=== PATIENT | female | born 1990 | race Caucasian/White ===

== ENCOUNTER 2016-04-05 21:02 | Emergency (ER) | payer OTHER ==
[~2016-04-05 21:02] MED LIST: /BUSP5TA OR; ACET50TA PO; BACT400T OR; BUSP10TA78 PO; CELE10TA OR; CELE20TA PO; DOCU10ELUD PO; IBUP600T26 PO; IBUP80TA PO; KEFL500C OR; PERC7.5T8 OR; PRENTAB74 PO; XANA0.5T PO; [UNRECOGNIZED DRUG - OTHER]; [UNRECOGNIZED DRUG - OTHER]
[2016-04-05] MEDS ORDERED: IBUPROFEN 600 MG TAB As Ordered ONE (22:28)
[2016-04-06] MEDS ORDERED: AMOXICILLIN 500 MG CAP As Ordered ONE (00:26)
--- NOTE | 2016-04-06 00:34 | EDDOCDS ---
Physician Documentation [facility] Name: Samia Hays Age: 25 yrs Sex: Female : 1990 Arrival Date: 04/05/2016 Time: 21:02 Bed PR Private MD: Petty Emmanuel Disposition: 04/06/16 00:12 Discharged to Home/Self Care. Impression: Streptococcal pharyngitis. - Condition is Stable. - Discharge Instructions: Salt Water Gargle, Strep Throat. - Prescriptions for Ibuprofen 600 mg Oral Tablet - take 1 tablet by ORAL route every 6 hours As needed take with food; 30 tablet. Amoxicillin 500 mg Oral Capsule - take 1 capsule by ORAL route every 8 hours for 10 days; 30 tablet. - Medication Reconciliation, Local Pharmacy Hours form. - Follow up: Petty Emmanuel; When: 1 - 2 days; Reason: Recheck today's complaints, Continuance of care. - Problem is new. - Symptoms have improved. - Notes: USE MEDICATIONS INSTRUCTED, FOLLOW UP WITH YOUR DOCTOR IN 2-3 DAYS, RETURN TO THE ER IF THE SYMPTOMS WORSEN OR BECOME CONCERNING Historical: - Allergies: no known allergies; - Home Meds: 1. Xanax 0.5 mg Oral tab PRN (Last dose: 03/28/2016) 2. hydrocodone-acetaminophen 5-325 mg Oral tab (Last dose: 04/04/2016 20:00) 3. cold medicine as needed (Last dose: 04/05/2016) 4. Theraflu Flu-Sore Throat oral Unknown oral as needed (Last dose: 04/05/2016 17:30) - PMHx: knee pain; Anxiety; - PSHx: Knee surgery- Left; - Social history: Smoking status: Patient uses tobacco products, current every day smoker. Patient uses alcohol but reports only rare drinking. Patient/guardian denies using street drugs, No barriers to communication noted, The patient speaks fluent Frisian, Speaks appropriately for age. - Family history: Not pertinent. - : The pt / caregiver states he / she is not on anticoagulants. Home medication list is obtained from the patient. - Exposure Risk Screening:: None identified. 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 1 in. (154.94 cm) (R); 04/06 00:31 BP 115 / 67; Pulse 95; Resp 18; Temp 97.8(O); Pulse Ox 97% on R/A; Pain 3/10; tm5 04/05 21:03 Body Mass Index 18.89 (45.36 kg, 154.94 cm) elp MDM: 04/05 22:27 Ibuprofen 600 mg PO once ordered. ck7 22:27 Obtain sample by nasopharyngeal swab ordered. ck7 22:27 Strep Screen, Nursing ordered. ck7 22:27 -Influenza A&B Rapid Antigen - Nose Ordered. EDMS 22:29 Chest, 2 View (pa\E\lat) Ordered. EDMS 23:49 Financial registration complete. hs2 23:58 -Influenza A&B Rapid Antigen - Nose Reviewed. ck7 04/06 00:11 Amoxicillin 500 mg PO once ordered. ck7 Administered Medications: 04/05 22:32 Drug: Ibuprofen 600 mg [ibuprofen 600 mg tablet (1 tabs)] Route: PO; rs3 04/06 00:30 Drug: Amoxicillin 500 mg [amoxicillin 500 mg capsule (1 caps)] Route: PO; tm5 00:30 Follow up: Response: Pt left department before re-evaluation is appropriate tm5 Signatures: Dispatcher [employer] EDMS Osvaldo Araya, RPA-C RPA-Cck7 Elinor Niño RN RN ttb Yoly Huizar, Joaquin Reg hs2 Sofia Mitchell RN RN tm5 Kyra Watson RN rs3 MTDD
--- NOTE | 2016-04-06 00:34 | EDDOCDS ---
Nurse's Notes [facility] Name: Samia Hays Age: 25 yrs Sex: Female : 1990 Arrival Date: 04/05/2016 Time: 21:02 Bed PR Private MD: Petty Emmanuel Diagnosis: Streptococcal pharyngitis Presentation: 04/05 21:08 Presenting complaint: Patient states: ear pain, throat pain, headache since this ttb morning. Adult Sepsis Screening: The patient does not have new or worsening altered mentation. Patient's respiratory rate is less than 22. Systolic blood pressure is greater than 100. Patient has a qSOFA score of 0- Negative Sepsis Screen. Suicide/Homicide risk assessment- the patient denies having any suicidal and/or homicidal ideations and does not present with any other emotional, behavioral or mental health complaints. Status: Patient is not a automotive service consultant or dependent. Transition of care: patient was not received from another setting of care. 21:08 Acuity: RICCO Level 4 ttb 21:08 Method Of Arrival: Walkin/Carried/Asstd ttb Triage Assessment: 21:11 General: Appears in no apparent distress, well nourished, well groomed, Behavior is ttb appropriate for age, cooperative, pleasant. Pain: Location: ears, body aches. HIV screening NA for this visit Offered previously. Neurological: Level of Consciousness is awake, alert. Cardiovascular: Chest pain is denied. Respiratory: Reports cough that is. Derm: Skin is normal. 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 Xanax 0.5 mg Oral tab PRN (Last dose: 03/28/2016) 2. hydrocodone-acetaminophen 5-325 mg Oral tab (Last dose: 04/04/2016 20:00) 3. cold medicine as needed (Last dose: 04/05/2016) 4. Theraflu Flu-Sore Throat oral Unknown oral as needed (Last dose: 04/05/2016 17:30) - PMHx: knee pain; Anxiety; - PSHx: Knee surgery- Left; - Social history: Smoking status: Patient uses tobacco products, current every day smoker. Patient uses alcohol but reports only rare drinking. Patient/guardian denies using street drugs, No barriers to communication noted, The patient speaks fluent Persian, Speaks appropriately for age. - Family history: Not pertinent. - : The pt / caregiver states he / she is not on anticoagulants. Home medication list is obtained from the patient. - Exposure Risk Screening:: None identified. Screenin/12 00:31 Screening information is obtained from the patient. Fall risk: No risks identified. tm5 Assistance ADL's: requires no assistance with activities of daily living. Abuse/DV Screen: The patient / caregiver reports he/she is: not in a situation that causes fear, pain or injury. Nutritional screening: No deficits noted. Advance Directives: There is no active DNR order. home support is adequate. Assessment: 04/05 22:33 General: Appears in no apparent distress, Behavior is appropriate for age, cooperative. rs3 Pain: Location: sore throat. EENT: Throat is reddened. Respiratory: Airway is patent Respiratory effort is even, unlabored, Respiratory pattern is regular, symmetrical. Derm: Skin is pink, warm & dry. Vital Signs: 21:03 BP 122 / 67; Pulse 89; Resp 20; Temp 100.4(O); Pulse Ox 100% on R/A; Weight 45.36 kg elp (R); Height 5 ft. 1 in. (154.94 cm) (R); 02 00:31 BP 115 / 67; Pulse 95; Resp 18; Temp 97.8(O); Pulse Ox 97% on R/A; Pain 3/10; tm5 04/05 21:03 Body Mass Index 18.89 (45.36 kg, 154.94 cm) elp Vitals: 04/05 21:03 Log In Time: April 05, 2016 at 21:02. elp 22:38 Strep Screen is obtained and tested: Positive. rs3 ED Course: 21:03 Patient visited by Varsha Turner PCA. elp 21:03 Petty Emmanuel is Private Physician. elp 21:03 Patient moved to Waiting elp 21:06 Patient visited by Varsha Turner PCA. elp 21:06 Patient moved to Pre RCE elp 21:09 Triage Initiated ttb 21:51 Patient moved to Triage 1 rs3 22:01 [facility]val[facility] ck7 22:01 Angelo Mancia DO is Attending Physician. ck7 22:01 Patient visited by Osvaldo Araya RPA-C. ck7 22:32 Patient moved to TR5 rs3 22:32 -Influenza A&B Rapid Antigen - Nose Sent. rs3 22:33 Patient visited by Kyra Watson RN. rs3 23:33 Patient visited by Osvaldo Araya RPA-C. ck7 04/06 00:04 Patient visited by Osvaldo Araya RPA-C. ck7 00:11 Petty Emmanuel is Referral Physician. ck7 00:23 Patient moved to PR1 / [facility] [place] 00:32 The patient / caregiver is instructed regarding the plan of care and ED course. tm5 00:32 No IV's were initiated during this patient's visit. No procedures done that require tm5 assistance. Administered Medications: 04/05 22:32 Drug: Ibuprofen 600 mg [ibuprofen 600 mg tablet (1 tabs)] Route: PO; rs3 02 00:30 Drug: Amoxicillin 500 mg [amoxicillin 500 mg capsule (1 caps)] Route: PO; tm5 00:30 Follow up: Response: Pt left department before re-evaluation is appropriate tm5 Order Results: Lab Order: -Influenza A&B Rapid Antigen - Nose; SPEC'M 04/05/16 22:29 Test: INFLUENZA A RAPID SCR by ICA; Value: INFLUENZA A RESULTS NEGATIVE; Status: F Test: INFLUENZA A RAPID SCR by ICA; Value: Comments:; Status: F Test: INFLUENZA B RAPID SCR by ICA; Value: INFLUENZA B RESULTS NEGATIVE; Status: F Test Note: ; The Influenza test is a direct rapid immunoassay for the qualitative detection of Influenza viral antigen. Cell culture (Viral Culture) testing should be considered to confirm NEGATIVE results and to assist in detecting other viruses that can provide similar clinical symptoms. Please contact the lab within 24 hours ([phone]) if confirmatory testing is desired. Outcome: 00:12 Discharge ordered by Provider. ck7 00:31 Discharge Assessment: Patient awake, alert and oriented x 3. No cognitive and/or tm5 functional deficits noted. Patient verbalized understanding of disposition instructions. patient administered narcotics - no. The following High Risk Discharge criteria are identified: None. Discharged to home ambulatory. Condition: good Condition: stable. Discharge instructions given to patient, Instructed on discharge instructions, follow up and referral plans. medication usage, Demonstrated understanding of instructions, medications, Pt was receptive of discharge instructions/ teaching. Prescriptions given X 2. No special radiology studies were completed. Property :Personal belongings accompany Pt. 00:32 Patient left the ED. tm5 Signatures: Kristal Borges, RN RN kmg1 Kyra WatsonRN RN rs3 Osvaldo Araya, RPA-C RPA-Cck7 Elinor Niño, RN RN Varsha Mack, SOLAR SITE ASSESSMENT SPECIALIST SOLAR SITE ASSESSMENT SPECIALIST Sofia Singh,RN RN tm5 MTDD
--- NOTE | 2016-04-06 13:57 | REP ---
CHEST X-RAY PA AND LATERAL: 04/05/2016. Comparison: 12/02/2008, 04/06/2007. Clinical history: Cough. Findings: Two view show the lungs well inflated and without infiltrate, effusion, atelectasis or mass. The heart, mediastinal and hilar contours are normal. Bony thorax unremarkable. Airway was intact and the aorta normal. There is no free air under the diaphragm. Impression: 1. No acute cardiopulmonary change. Signed by Nirav Cooper MD 04/06/2016 07:24 P
--- NOTE | 2016-04-08 01:34 | EDDOCDS ---
Nurse's Notes [facility] Name: Samia Hays Age: 25 yrs Sex: Female : 1990 Arrival Date: 04/05/2016 Time: 21:02 Bed PR Private MD: Petty Emmanuel Diagnosis: Streptococcal pharyngitis Presentation: 04/05 21:08 Presenting complaint: Patient states: ear pain, throat pain, headache since this ttb morning. Adult Sepsis Screening: The patient does not have new or worsening altered mentation. Patient's respiratory rate is less than 22. Systolic blood pressure is greater than 100. Patient has a qSOFA score of 0- Negative Sepsis Screen. Suicide/Homicide risk assessment- the patient denies having any suicidal and/or homicidal ideations and does not present with any other emotional, behavioral or mental health complaints. Status: Patient is not a food service substitute or dependent. Transition of care: patient was not received from another setting of care. 21:08 Acuity: RICCO Level 4 ttb 21:08 Method Of Arrival: Walkin/Carried/Asstd ttb Triage Assessment: 21:11 General: Appears in no apparent distress, well nourished, well groomed, Behavior is ttb appropriate for age, cooperative, pleasant. Pain: Location: ears, body aches. HIV screening NA for this visit Offered previously. Neurological: Level of Consciousness is awake, alert. Cardiovascular: Chest pain is denied. Respiratory: Reports cough that is. Derm: Skin is normal. 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 Xanax 0.5 mg Oral tab PRN (Last dose: 03/28/2016) 2. hydrocodone-acetaminophen 5-325 mg Oral tab (Last dose: 04/04/2016 20:00) 3. cold medicine as needed (Last dose: 04/05/2016) 4. Theraflu Flu-Sore Throat oral Unknown oral as needed (Last dose: 04/05/2016 17:30) - PMHx: knee pain; Anxiety; - PSHx: Knee surgery- Left; - Social history: Smoking status: Patient uses tobacco products, current every day smoker. Patient uses alcohol but reports only rare drinking. Patient/guardian denies using street drugs, No barriers to communication noted, The patient speaks fluent Kinyarwanda, Speaks appropriately for age. - Family history: Not pertinent. - : The pt / caregiver states he / she is not on anticoagulants. Home medication list is obtained from the patient. - Exposure Risk Screening:: None identified. Screenin/12 00:31 Screening information is obtained from the patient. Fall risk: No risks identified. tm5 Assistance ADL's: requires no assistance with activities of daily living. Abuse/DV Screen: The patient / caregiver reports he/she is: not in a situation that causes fear, pain or injury. Nutritional screening: No deficits noted. Advance Directives: There is no active DNR order. home support is adequate. Assessment: 04/05 22:33 General: Appears in no apparent distress, Behavior is appropriate for age, cooperative. rs3 Pain: Location: sore throat. EENT: Throat is reddened. Respiratory: Airway is patent Respiratory effort is even, unlabored, Respiratory pattern is regular, symmetrical. Derm: Skin is pink, warm & dry. Vital Signs: 21:03 BP 122 / 67; Pulse 89; Resp 20; Temp 100.4(O); Pulse Ox 100% on R/A; Weight 45.36 kg elp (R); Height 5 ft. 1 in. (154.94 cm) (R); 02 00:31 BP 115 / 67; Pulse 95; Resp 18; Temp 97.8(O); Pulse Ox 97% on R/A; Pain 3/10; tm5 04/05 21:03 Body Mass Index 18.89 (45.36 kg, 154.94 cm) elp Vitals: 04/05 21:03 Log In Time: April 05, 2016 at 21:02. elp 22:38 Strep Screen is obtained and tested: Positive. rs3 ED Course: 21:03 Patient visited by Varsha Turner PCA. elp 21:03 Petty Emmanuel is Private Physician. elp 21:03 Patient moved to Waiting elp 21:06 Patient visited by Varsha Turner PCA. elp 21:06 Patient moved to Pre RCE elp 21:09 Triage Initiated ttb 21:51 Patient moved to Triage 1 rs3 22:01 [facility] ck7 22:01 Angelo Mancia DO is Attending Physician. ck7 22:01 Patient visited by Osvaldo Araya RPA-C. ck7 22:32 Patient moved to TR5 rs3 22:32 -Influenza A&B Rapid Antigen - Nose Sent. rs3 22:33 Patient visited by Kyra Watson RN. rs3 23:33 Patient visited by Osvaldo Araya RPA-C. ck7 02 00:04 Patient visited by Osvaldo Araya RPA-C. ck7 00:11 Petty Emmanuel is Referral Physician. ck7 00:23 Patient moved to PR1 / 25 km 00:32 The patient / caregiver is instructed regarding the plan of care and ED course. tm5 00:32 No IV's were initiated during this patient's visit. No procedures done that require tm5 assistance. 01:31 [facility] Payment Agreement was scanned into [employer] and attached to record. hs2 14:31 Chest, 2 View (pa\E\lat) Returned. EDMS 22:48 T-Sheet-- Draft Copy was scanned into [employer] and attached to record. klr Administered Medications: 04/05 22:32 Drug: Ibuprofen 600 mg [ibuprofen 600 mg tablet (1 tabs)] Route: PO; rs3 02 00:30 Drug: Amoxicillin 500 mg [amoxicillin 500 mg capsule (1 caps)] Route: PO; tm5 00:30 Follow up: Response: Pt left department before re-evaluation is appropriate tm5 Order Results: Lab Order: -Influenza A&B Rapid Antigen - Nose; SPEC'M 04/05/16 22:29 Test: INFLUENZA A RAPID SCR by ICA; Value: INFLUENZA A RESULTS NEGATIVE; Status: F Test: INFLUENZA A RAPID SCR by ICA; Value: Comments:; Status: F Test: INFLUENZA B RAPID SCR by ICA; Value: INFLUENZA B RESULTS NEGATIVE; Status: F Test Note: ; The Influenza test is a direct rapid immunoassay for the qualitative detection of Influenza viral antigen. Cell culture (Viral Culture) testing should be considered to confirm NEGATIVE results and to assist in detecting other viruses that can provide similar clinical symptoms. Please contact the lab within 24 hours ([phone]) if confirmatory testing is desired. Radiology Order: Chest, 2 View (pa\E\lat) Test: Chest, 2 View (pa\E\lat) REASON FOR EXAMINATION: Cough; CHEST X-RAY PA AND LATERAL: 04/05/2016.; ; Comparison: 12/02/2008, 04/06/2007.; ; Clinical history: Cough.; ; Findings: Two view show the lungs well inflated and without infiltrate,; effusion, atelectasis or mass. The heart, mediastinal and hilar contours are; normal. Bony thorax unremarkable. Airway was intact and the aorta normal.; There is no free air under the diaphragm.; ; Impression:; ; 1. No acute cardiopulmonary change.; ; ; Signed by; Nirav Cooper MD 04/06/2016 07:24 P; Outcome: 00:12 Discharge ordered by Provider. ck7 00:31 Discharge Assessment: Patient awake, alert and oriented x 3. No cognitive and/or tm5 functional deficits noted. Patient verbalized understanding of disposition instructions. patient administered narcotics - no. The following High Risk Discharge criteria are identified: None. Discharged to home ambulatory. Condition: good Condition: stable. Discharge instructions given to patient, Instructed on discharge instructions, follow up and referral plans. medication usage, Demonstrated understanding of instructions, medications, Pt was receptive of discharge instructions/ teaching. Prescriptions given X 2. No special radiology studies were completed. Property :Personal belongings accompany Pt. 00:32 Patient left the ED. tm5 Signatures: Dispatcher [employer] EDMS Kristal Borges, RN RN kmg1 Kyra Watson RN RN rs3 Osvaldo Araya, RPA-C RPA-Cck7 Elinor Niño RN RN Varsha Mack, LUCILLE ENGINEERING VICE PRESIDENT elp Yoly Huizar, Reg Reg hs2 Susan Delgado Tonya,RN RN tm5 Chart Complete MTDD
--- NOTE | 2016-04-08 01:34 | EDDOCDS ---
Physician Documentation [facility] Name: Samia Hays Age: 25 yrs Sex: Female : 1990 Arrival Date: 04/05/2016 Time: 21:02 Bed PR Private MD: Petty Emmanuel Disposition: 04/06/16 00:12 Discharged to Home/Self Care. Impression: Streptococcal pharyngitis. - Condition is Stable. - Discharge Instructions: Salt Water Gargle, Strep Throat. - Prescriptions for Ibuprofen 600 mg Oral Tablet - take 1 tablet by ORAL route every 6 hours As needed take with food; 30 tablet. Amoxicillin 500 mg Oral Capsule - take 1 capsule by ORAL route every 8 hours for 10 days; 30 tablet. - Medication Reconciliation, Local Pharmacy Hours form. - Follow up: Petty Emmanuel; When: 1 - 2 days; Reason: Recheck today's complaints, Continuance of care. - Problem is new. - Symptoms have improved. - Notes: USE MEDICATIONS INSTRUCTED, FOLLOW UP WITH YOUR DOCTOR IN 2-3 DAYS, RETURN TO THE ER IF THE SYMPTOMS WORSEN OR BECOME CONCERNING Historical: - Allergies: no known allergies; - Home Meds: 1. Xanax 0.5 mg Oral tab PRN (Last dose: 03/28/2016) 2. hydrocodone-acetaminophen 5-325 mg Oral tab (Last dose: 04/04/2016 20:00) 3. cold medicine as needed (Last dose: 04/05/2016) 4. Theraflu Flu-Sore Throat oral Unknown oral as needed (Last dose: 04/05/2016 17:30) - PMHx: knee pain; Anxiety; - PSHx: Knee surgery- Left; - Social history: Smoking status: Patient uses tobacco products, current every day smoker. Patient uses alcohol but reports only rare drinking. Patient/guardian denies using street drugs, No barriers to communication noted, The patient speaks fluent Indonesian, Speaks appropriately for age. - Family history: Not pertinent. - : The pt / caregiver states he / she is not on anticoagulants. Home medication list is obtained from the patient. - Exposure Risk Screening:: None identified. 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 1 in. (154.94 cm) (R); 04/06 00:31 BP 115 / 67; Pulse 95; Resp 18; Temp 97.8(O); Pulse Ox 97% on R/A; Pain 3/10; tm5 04/05 21:03 Body Mass Index 18.89 (45.36 kg, 154.94 cm) elp MDM: 04/05 22:27 Ibuprofen 600 mg PO once ordered. ck7 22:27 Obtain sample by nasopharyngeal swab ordered. ck7 22:27 Strep Screen, Nursing ordered. ck7 22:27 -Influenza A&B Rapid Antigen - Nose Ordered. EDMS 22:29 Chest, 2 View (pa\E\lat) Ordered. EDMS 23:49 Financial registration complete. hs2 23:58 -Influenza A&B Rapid Antigen - Nose Reviewed. ck7 04/06 00:11 Amoxicillin 500 mg PO once ordered. ck7 01:31 [facility] Payment Agreement was scanned into [employer] and attached to record. hs2 22:48 T-Sheet-- Draft Copy was scanned into [employer] and attached to record. klr Administered Medications: 04/05 22:32 Drug: Ibuprofen 600 mg [ibuprofen 600 mg tablet (1 tabs)] Route: PO; rs3 02 00:30 Drug: Amoxicillin 500 mg [amoxicillin 500 mg capsule (1 caps)] Route: PO; tm5 00:30 Follow up: Response: Pt left department before re-evaluation is appropriate tm5 Signatures: Dispatcher [employer] EDMS Osvaldo Araya, RPA-C RPA-Cck7 Elinor Niño RN RN ttb Yoly Huizar, Reg Reg hs2 Susan Delgado Tonya, RN RN tm5 Kyra Watson RN rs3 The chart was reviewed and I authenticate all verbal orders and agree with the evaluation and treatment provided.Attachments: 01:31 [facility] Payment Agreement hs2 22:48 T-Sheet-- Draft Copy klr Chart Complete MTDD
--- NOTE | 2016-04-08 01:34 | EDDOCDS ---
Physician Documentation [facility] Name: Samia Hays Age: 25 yrs Sex: Female : 1990 Arrival Date: 04/05/2016 Time: 21:02 Bed PR Private MD: Petty Emmanuel Disposition: 04/06/16 00:12 Discharged to Home/Self Care. Impression: Streptococcal pharyngitis. - Condition is Stable. - Discharge Instructions: Salt Water Gargle, Strep Throat. - Prescriptions for Ibuprofen 600 mg Oral Tablet - take 1 tablet by ORAL route every 6 hours As needed take with food; 30 tablet. Amoxicillin 500 mg Oral Capsule - take 1 capsule by ORAL route every 8 hours for 10 days; 30 tablet. - Medication Reconciliation, Local Pharmacy Hours form. - Follow up: Petty Emmanuel; When: 1 - 2 days; Reason: Recheck today's complaints, Continuance of care. - Problem is new. - Symptoms have improved. - Notes: USE MEDICATIONS INSTRUCTED, FOLLOW UP WITH YOUR DOCTOR IN 2-3 DAYS, RETURN TO THE ER IF THE SYMPTOMS WORSEN OR BECOME CONCERNING Historical: - Allergies: no known allergies; - Home Meds: 1. Xanax 0.5 mg Oral tab PRN (Last dose: 03/28/2016) 2. hydrocodone-acetaminophen 5-325 mg Oral tab (Last dose: 04/04/2016 20:00) 3. cold medicine as needed (Last dose: 04/05/2016) 4. Theraflu Flu-Sore Throat oral Unknown oral as needed (Last dose: 04/05/2016 17:30) - PMHx: knee pain; Anxiety; - PSHx: Knee surgery- Left; - Social history: Smoking status: Patient uses tobacco products, current every day smoker. Patient uses alcohol but reports only rare drinking. Patient/guardian denies using street drugs, No barriers to communication noted, The patient speaks fluent Amharic, Speaks appropriately for age. - Family history: Not pertinent. - : The pt / caregiver states he / she is not on anticoagulants. Home medication list is obtained from the patient. - Exposure Risk Screening:: None identified. [employer]: 04/05 21:11 LMP 03/30/2016 ttb Vital Signs: 21:03 BP 122 / 67; Pulse 89; Resp 20; Temp 100.4(O); Pulse Ox 100% on R/A; Weight 45.36 kg / elp 100 lbs (R); Height 5 ft. 1 in. (154.94 cm) (R); 04/06 00:31 BP 115 / 67; Pulse 95; Resp 18; Temp 97.8(O); Pulse Ox 97% on R/A; Pain 3/10; tm5 04/05 21:03 Body Mass Index 18.89 (45.36 kg, 154.94 cm) elp MDM: 04/05 22:27 Ibuprofen 600 mg PO once ordered. ck7 22:27 Obtain sample by nasopharyngeal swab ordered. ck7 22:27 Strep Screen, Nursing ordered. ck7 22:27 -Influenza A&B Rapid Antigen - Nose Ordered. EDMS 22:29 Chest, 2 View (pa\E\lat) Ordered. EDMS 23:49 Financial registration complete. hs2 23:58 -Influenza A&B Rapid Antigen - Nose Reviewed. ck7 04/06 00:11 Amoxicillin 500 mg PO once ordered. ck7 01:31 [facility] Payment Agreement was scanned into [employer] and attached to record. hs2 22:48 T-Sheet-- Draft Copy was scanned into [employer] and attached to record. klr Administered Medications: 04/05 22:32 Drug: Ibuprofen 600 mg [ibuprofen 600 mg tablet (1 tabs)] Route: PO; rs3 02 00:30 Drug: Amoxicillin 500 mg [amoxicillin 500 mg capsule (1 caps)] Route: PO; tm5 00:30 Follow up: Response: Pt left department before re-evaluation is appropriate tm5 Signatures: Dispatcher [employer] EDMS Osvaldo Araya, RPA-C [id number] Elinor Niño RN RN ttb oYly Huizar, Reg Reg hs2 Susan Delgado Tonya, RN RN tm5 Kyra Watson RN rs3 The chart was reviewed and I authenticate all verbal orders and agree with the evaluation and treatment provided.Attachments: 01:31 [facility] Payment Agreement hs2 22:48 T-Sheet-- Draft Copy klr Chart Complete MTDD
== END 2016-04-06 00:32 | disposition home or self-care (01) ==
LOC: M ED 21:02
DX: J02.0 Streptococcal pharyngitis (principal); F41.9 Anxiety disorder, unspecified; M25.562 Pain in left knee; Z79.899 Other long term (current) drug therapy; Z79.891 Long term (current) use of opiate analgesic; F17.200 Nicotine dependence, unspecified, uncomplicated

== ENCOUNTER → 2016-05-02 | Outpatient (REF) | payer OTHER | LOC: M LAB REF 11:50 | PROVIDERS: ATTEND Physician Assistant Medical | DX: J11.1 Influenza due to unidentified influenza virus with other respiratory manifestations (principal) ==

== ENCOUNTER 2016-05-21 13:00 | Outpatient (RCR) | payer OTHER | END 2016-05-23 | LOC: M PT 13:00 | PROVIDERS: ATTEND Physician Assistant Surgical | DX: Z51.89 Encounter for other specified aftercare (principal); M25.562 Pain in left knee; G89.29 Other chronic pain; M22.42 Chondromalacia patellae, left knee; Z98.890 Other specified postprocedural states ==

== ENCOUNTER 2016-06-18 13:43 | Outpatient (RCR) | payer OTHER | END 2016-06-22 | disposition home or self-care (01) | LOC: M PT 13:43 | PROVIDERS: ATTEND Physician Assistant Surgical | DX: Z51.89 Encounter for other specified aftercare (principal); M22.42 Chondromalacia patellae, left knee; Z98.890 Other specified postprocedural states ==

== ENCOUNTER 2016-07-16 13:36 | Outpatient (RCR) | payer MEDICAID, OTHER, SELFPAY | END 2016-07-23 | LOC: M PT 13:36 | PROVIDERS: ATTEND Physician Assistant Surgical | DX: Z51.89 Encounter for other specified aftercare (principal); M22.42 Chondromalacia patellae, left knee; M25.562 Pain in left knee; Z98.890 Other specified postprocedural states ==

== ENCOUNTER 2017-01-30 11:21 | Emergency (ER) | payer MEDICAID, OTHER ==
[~2017-01-30] VITALS: Ht 154.9 cm; Wt 44.5 kg
[2017-01-30] MEDS ORDERED: PERCOCET (11:30)
[2017-01-30] MEDS ORDERED: MIDO1TAB5 PO (11:30)
[2017-01-30] MEDS ORDERED: ZOLP5TAB (11:30)
[2017-01-30] MEDS ORDERED: KETOROLAC 60 MG/2 ML VIAL (J1885) IM ONE (12:15)
--- NOTE | 2017-01-30 13:51 | REP ---
PELVIC ULTRASOUND: 01/30/2017 CLINICAL HISTORY: Cramping, pain, pelvic pain. Symptoms worse than normal. FINDINGS: Transabdominal images were obtained. The uterus anteverted and measures 7.5 x 3.8 x 4.1 cm. It is well seen although the bladder is nearly empty. The endometrial stripe is centrally located and has a thickness of 10.2 mm. No fluid in endometrial cavity or endocervical canal. No discrete uterine mass. No fluid in the cul-de-sac. The right ovary is 3.5 x 3.4 x 1.9 cm with Doppler tracing showing resistive index of 0.52. No mass or cyst. There is trace fluid adjacent to the right ovary. The left ovary is 2.4 x 2.3 x 1.5 cm. It also shows a Doppler tracing with resistive index of 0.59. IMPRESSION: 1. Anteverted uterus with no uterine mass, contour abnormality or enlargement. Endometrial stripe 10 mm and normal echogenicity without fluid within. 2. Both ovaries without mass or definite cyst. Small amount of free fluid adjacent the right ovary. No torsion of either side. Signed by Nirav Cooper MD 01/30/2017 06:55 P
[2017-01-30 13:54] VITALS: BP 105/61
== END 2017-01-30 13:55 | disposition home or self-care (01) ==
LOC: M ED 11:21
DX: N94.6 Dysmenorrhea, unspecified (principal); F41.9 Anxiety disorder, unspecified; F32.9 Major depressive disorder, single episode, unspecified; F17.200 Nicotine dependence, unspecified, uncomplicated; Z79.899 Other long term (current) drug therapy
CPT/HCPCS: 76856; 81001; 81025; 93976; 96372; 99284; J1885

== ENCOUNTER → 2017-03-24 | Outpatient (REF) | payer OTHER ==
[2017-03-27 14:13] LABS: HPV HYBRID CAPTURE II Positive (Negative)
== END ==
LOC: M SFHCWAGY 14:57
DX: Z12.4 Encounter for screening for malignant neoplasm of cervix (principal)

== ENCOUNTER → 2017-12-21 | Outpatient (REF) | payer OTHER, MEDICAID ==
[2017-12-21 17:06] LABS: HEMOGLOBIN 12.3 g/dl (12.0-15.5); MEAN CORPUSCULAR HEMOGLOBIN 33.3 pg (27.0-33.0); MEAN CORPUSCULAR HGB CONC 33.2 g/dl (32.0-36.5); MEAN CORPUSCULAR VOLUME 100.3 fl (80.0-96.0); PLATELET COUNT, AUTOMATED 255 10^3/uL (150-450); RED BLOOD COUNT 3.69 10^6/uL (4.00-5.40); RED CELL DISTRIBUTION WIDTH 11.8 % (11.5-14.5); WHITE BLOOD COUNT 10.4 10^3/uL (4.0-10.0)
[2017-12-21 17:32] LABS: HCG, SERUM QUANTITATIVE 100858 MIU/ML
[2017-12-21 17:37] LABS: RUBELLA IgG QUALITATIVE IMMUNE (IMMUNE)
[2017-12-21 18:06] LABS: HIV 1&2 SCREEN CENTAUR NEGATIVE (NEGATIVE)
[2017-12-23 11:06] LABS: HBsAg Prenatal NEGATIVE (NEGATIVE)
[2017-12-23 11:35] LABS: HEPATITIS C VIRUS ABY INDEX < 0.0 INDEX (<0.8)
== END ==
LOC: M LAB REF 16:32
DX: O36.80X0 Pregnancy with inconclusive fetal viability, not applicable or unspecified (principal)

== ENCOUNTER 2018-03-26 13:58 | Emergency (ER) | payer MEDICAID, OTHER ==
[~2018-03-26] VITALS: Ht 154.9 cm; Wt 54.1 kg
[~2018-03-26 13:58] MED LIST changes: +MAPA500T2 PO; +MIDO1TAB5 PO; +PERCOCET; +ZOLP5TAB
[2018-03-26] MEDS ORDERED: TRIA1CR80 TOP (15:49)
[2018-03-26 15:59] VITALS: BP 99/56
== END 2018-03-26 16:00 | disposition home or self-care (01) ==
LOC: M ED 13:58
DX: O99.712 Diseases of the skin and subcutaneous tissue complicating pregnancy, second trimester (principal); L42 Pityriasis rosea; Z3A.22 22 weeks gestation of pregnancy

== ENCOUNTER → 2018-05-12 | Outpatient (CLI) | payer OTHER ==
[~2018-05-12] MED LIST changes: +TRIA1CR80 TOP
[2018-05-12 13:27] LABS: HEMATOCRIT 29.7 % (36.0-47.0); HEMOGLOBIN 9.7 g/dl (12.0-15.5); MEAN CORPUSCULAR HEMOGLOBIN 33.3 pg (27.0-33.0); MEAN CORPUSCULAR HGB CONC 32.7 g/dl (32.0-36.5); MEAN CORPUSCULAR VOLUME 102.1 fl (80.0-96.0); PLATELET COUNT, AUTOMATED 236 10^3/uL (150-450); RED BLOOD COUNT 2.91 10^6/uL (4.00-5.40); WHITE BLOOD COUNT 9.7 10^3/uL (4.0-10.0)
== END ==
LOC: M WUC 09:26
PROVIDERS: ATTEND Obstetrics & Gynecology
DX: Z36.89 Encounter for other specified antenatal screening (principal)

== ENCOUNTER → 2018-07-08 | Outpatient (REF) | payer OTHER ==
[~2018-07-08] MED LIST changes: -ACET50TA PO; -DOCU10ELUD PO; +DOCU5LIQ PO; +MAPA500T17 PO
== END ==
LOC: M LAB REF 12:30
PROVIDERS: ATTEND Obstetrics & Gynecology
DX: Z34.83 Encounter for supervision of other normal pregnancy, third trimester (principal); Z3A.00 Weeks of gestation of pregnancy not specified

== ENCOUNTER 2019-01-27 08:58 | Emergency (ER) | payer OTHER ==
[~2019-01-27] VITALS: Ht 162.6 cm; Wt 51.2 kg
[~2019-01-27 08:58] MED LIST changes: +IBUP-1114 PO; +PRENTAB9 PO
[2019-01-27] MEDS ORDERED: IBUPROFEN 600 MG TAB PO ONE (10:00)
[2019-01-27 10:50] VITALS: BP 103/82
[2019-01-27 11:09] LABS: INFLUENZA A AMPLIFICATION NEGATIVE (NEGATIVE); INFLUENZA B AMPLIFICATION POSITIVE (NEGATIVE)
[2019-01-27] MEDS ORDERED: OSEL75CA PO (11:17)
[2019-01-27] MEDS ORDERED: BENZ200C70 PO (11:17)
[2019-01-27] MEDS ORDERED: AFRI0.058 (11:17)
== END 2019-01-27 11:29 | disposition home or self-care (01) ==
LOC: M ED 08:58
DX: H65.02 Acute serous otitis media, left ear (principal); J10.89 Influenza due to other identified influenza virus with other manifestations; F17.210 Nicotine dependence, cigarettes, uncomplicated

== ENCOUNTER → 2019-03-24 | Outpatient (REF) | payer OTHER ==
[~2019-03-24] MED LIST changes: +AFRI0.058; +BENZ200C70 PO; +OSEL75CA PO
[2019-03-24 18:00] LABS: BASO # 0.1 10^3/uL (0.0-0.2); BASO % 0.8 % (0.0-1.0); EOS # 0.2 10^3/uL (0.0-0.5); EOS % 2.3 % (0.0-3.0); HEMATOCRIT 41.2 % (36.0-47.0); HEMOGLOBIN 12.9 g/dl (12.0-15.5); LYMPH # 1.9 10^3/uL (1.5-5.0); LYMPH % 28.8 % (24.0-44.0); MEAN CORPUSCULAR HEMOGLOBIN 31.4 pg (27.0-33.0); MEAN CORPUSCULAR HGB CONC 31.3 g/dl (32.0-36.5); MEAN CORPUSCULAR VOLUME 100.2 fl (80.0-96.0); MONO # 0.9 10^3/uL (0.0-0.8); MONO % 13.7 % (0.0-5.0); NEUTROPHILS # 3.5 10^3/uL (1.5-8.5); NEUTROPHILS % 54.1 % (36.0-66.0); PLATELET COUNT, AUTOMATED 243 10^3/uL (150-450); RED BLOOD COUNT 4.11 10^6/uL (4.00-5.40); WHITE BLOOD COUNT 6.4 10^3/uL (4.0-10.0)
[2019-03-24 18:14] LABS: ALBUMIN 4.3 GM/DL (3.2-5.2); ALT/SGPT 17 U/L (12-78); BILIRUBIN,TOTAL 0.3 MG/DL (0.2-1.0); BLOOD UREA NITROGEN 11 MG/DL (7-18); CALCIUM LEVEL 8.8 MG/DL (8.5-10.1); CARBON DIOXIDE LEVEL 27 MEQ/L (21-32); CHLORIDE LEVEL 108 MEQ/L (98-107); CHOLESTEROL LEVEL 147 MG/DL (<200); CHOLESTEROL RISK RATIO 2.773 (<5); CREATININE FOR GFR 0.58 MG/DL (0.55-1.30); FREE T4 1.05 NG/DL (0.76-1.46); GLOMERULAR FILTRATION RATE > 60.0 (>60); GLUCOSE, FASTING 78 MG/DL (70-100); HDL CHOLESTEROL 53 MG/DL (>40); LDL CHOLESTEROL 82 MG/DL (<100); NON-HDL-C 94 MG/DL; POTASSIUM SERUM 4.5 MEQ/L (3.5-5.1); SODIUM LEVEL 139 MEQ/L (136-145); TOTAL PROTEIN 7.5 GM/DL (6.4-8.2); TRIGLYCERIDES LEVEL 62 MG/DL (<150)
[2019-03-24 18:16] LABS: TOTAL 25(OH) VITAMIN D 7.5 NG/ML (30.0-100.0)
== END ==
LOC: M LAB REF 16:38
PROVIDERS: ATTEND Physician Assistant
DX: Z00.00 Encounter for general adult medical examination without abnormal findings (principal); Z13.9 Encounter for screening, unspecified; Z68.21 Body mass index [BMI] 21.0-21.9, adult; F41.1 Generalized anxiety disorder; F17.200 Nicotine dependence, unspecified, uncomplicated

== ENCOUNTER → 2019-05-20 | Outpatient (REF) | payer OTHER ==
[2019-05-20 13:16] LABS: APPEARANCE, URINE HAZY (CLEAR); BACTERIA, URINE AUTO NEGATIVE (NEGATIVE); BILIRUBIN, URINE AUTO NEGATIVE (NEGATIVE); BLOOD, URINE BLOOD NEGATIVE (NEGATIVE); COLOR, URINE YELLOW (YELLOW); GLUCOSE, URINE (UA) AUTO NEGATIVE (NEGATIVE); KETONE, URINE AUTO NEGATIVE (NEGATIVE); LEUKOCYTE ESTERASE, URINE AUTO TRACE (NEGATIVE); MUCUS, URINE LARGE (NEGATIVE); NITRITE, URINE AUTO NEGATIVE (NEGATIVE); PROTEIN, URINE AUTO NEGATIVE (NEGATIVE); RBC, URINE AUTO 1 /HPF (0-3); SPECIFIC GRAVITY URINE AUTO 1.028 (1.002-1.035); SQUAMOUS EPITHELIAL CELL UR AU 1 /HPF (0-6); UROBILINOGEN, URINE AUTO 0.2 mg/dL (0.0-2.0); WBC, URINE AUTO 3 /HPF (0-3)
== END ==
LOC: M LAB REF 12:34
PROVIDERS: ATTEND Physician Assistant Medical
DX: N39.0 Urinary tract infection, site not specified (principal)

== ENCOUNTER → 2019-06-08 | Outpatient (REF) | payer OTHER | LOC: M SMT 16:55 | PROVIDERS: ATTEND Nurse Practitioner Women's Health | DX: R30.0 Dysuria (principal); N89.8 Other specified noninflammatory disorders of vagina ==

== ENCOUNTER → 2021-08-13 | Outpatient (CLI) | payer MEDICAID ==
[~2021-08-13] MED LIST changes: -AFRI0.058; +OXYM15SP2
[2021-08-13 13:16] LABS: HEMATOCRIT 38.6 % (36.0-47.0); MEAN CORPUSCULAR HEMOGLOBIN 33.5 pg (27.0-33.0); MEAN CORPUSCULAR HGB CONC 33.7 g/dl (32.0-36.5); MEAN CORPUSCULAR VOLUME 99.5 fl (80.0-96.0); PLATELET COUNT, AUTOMATED 264 10^3/uL (150-450); RED BLOOD COUNT 3.88 10^6/uL (4.00-5.40); WHITE BLOOD COUNT 9.1 10^3/uL (4.0-10.0)
[2021-08-13 14:04] LABS: ALT/SGPT 14 U/L (12-78); BILIRUBIN,TOTAL 0.3 MG/DL (0.2-1.0); BLOOD UREA NITROGEN 9 MG/DL (7-18); CALCIUM LEVEL 8.8 MG/DL (8.5-10.1); CARBON DIOXIDE LEVEL 26 MEQ/L (21-32); CHLORIDE LEVEL 105 MEQ/L (98-107); CHOLESTEROL LEVEL 132 MG/DL (<200); CHOLESTEROL RISK RATIO 2.444 (<5); GLOMERULAR FILTRATION RATE > 60.0 (>60); GLUCOSE, FASTING 82 MG/DL (70-100); HDL CHOLESTEROL 54 MG/DL (>40); IRON (FE) 63 UG/DL (50-170); LDL CHOLESTEROL 60 MG/DL (<100); NON-HDL-C 78 MG/DL; PERCENT SATURATION 20.1 % (13.2-45.0); POTASSIUM SERUM 4.2 MEQ/L (3.5-5.1); SODIUM LEVEL 139 MEQ/L (136-145); THYROID STIMULATING HORMONE 0.223 uIU/ML (0.358-3.740); TOTAL 25(OH) VITAMIN D 25.2 NG/ML (30.0-100.0); TOTAL IRON BINDING CAPACITY 314 UG/DL (250-450); TOTAL PROTEIN 7.1 GM/DL (6.4-8.2); TRIGLYCERIDES LEVEL 89 MG/DL (<150)
[2021-08-13 14:37] LABS: HEMOGLOBIN A1c 4.8 %
== END ==
LOC: M RAD 12:26
PROVIDERS: ATTEND Family Medicine
DX: I10 Essential (primary) hypertension (principal); D64.9 Anemia, unspecified; R53.83 Other fatigue; J44.9 Chronic obstructive pulmonary disease, unspecified

== ENCOUNTER 2021-12-27 09:41 | Emergency (ER) | payer MEDICAID, OTHER ==
[~2021-12-27] VITALS: Ht 154.9 cm; Wt 52.9 kg
[2021-12-27] MEDS ORDERED: GABA-282 (10:07)
[2021-12-27] MEDS ORDERED: ALPR0.5T3 (10:07)
[2021-12-27] MEDS ORDERED: BUSP7.5T7 (10:07)
[2021-12-27] MEDS ORDERED: ERGO500029 (10:07)
[2021-12-27 14:10] LABS: AMPHETAMINES LEVEL URINE NEGATIVE (NEGATIVE); BARBITURATES URINE NEGATIVE (NEGATIVE); BENZODIAZEPINES URINE NEGATIVE (NEGATIVE); CANNABINOIDS URINE NEGATIVE (NEGATIVE); COCAINE METABOLITE URINE NEGATIVE (NEGATIVE); METHADONE URINE NEGATIVE (NEGATIVE); OPIATES URINE NEGATIVE (NEGATIVE); PHENCYCLIDINE URINE NEGATIVE (NEGATIVE)
[2021-12-27] MEDS ORDERED: XANA0.5T PO (15:07)
[2021-12-27 15:20] VITALS: BP 105/70
== END 2021-12-27 15:25 | disposition home or self-care (01) ==
LOC: M ED 09:41
DX: Z76.0 Encounter for issue of repeat prescription (principal); F41.9 Anxiety disorder, unspecified; F32.A Depression, unspecified; F17.200 Nicotine dependence, unspecified, uncomplicated; Z79.891 Long term (current) use of opiate analgesic; Z79.899 Other long term (current) drug therapy

== ENCOUNTER → 2022-01-02 | Outpatient (REF) | payer OTHER, MEDICAID ==
[~2022-01-02] MED LIST changes: +ALPR0.5T3; +BUSP7.5T7; +ERGO500029; +GABA-282
[2022-01-02 17:47] LABS: ALBUMIN 4.2 GM/DL (3.2-5.2); ALT/SGPT 22 U/L (12-78); BILIRUBIN,DIRECT 0.1 MG/DL (0.0-0.2); BILIRUBIN,TOTAL 0.4 MG/DL (0.2-1.0); BLOOD UREA NITROGEN 12 MG/DL (7-18); CALCIUM LEVEL 9.1 MG/DL (8.5-10.1); CARBON DIOXIDE LEVEL 29 MEQ/L (21-32); CHLORIDE LEVEL 104 MEQ/L (98-107); CREATININE FOR GFR 0.59 MG/DL (0.55-1.30); FREE T4 1.14 NG/DL (0.76-1.46); GLOMERULAR FILTRATION RATE > 60.0 (>60); GLUCOSE, FASTING 55 MG/DL (70-100); PHOSPHORUS LEVEL 3.4 MG/DL (2.5-4.9); SODIUM LEVEL 140 MEQ/L (136-145); TOTAL PROTEIN 7.8 GM/DL (6.4-8.2)
[2022-01-02 18:23] LABS: TOTAL 25(OH) VITAMIN D 17.4 NG/ML (30.0-100.0)
[2022-01-02 19:19] LABS: HEPATITIS C VIRUS ABY INDEX 0.2 INDEX (<0.8)
[2022-01-02 19:21] LABS: HIV 1&2 SCREEN CENTAUR NEGATIVE (NEGATIVE)
== END ==
LOC: M LAB REF 16:28
PROVIDERS: ATTEND Physician Assistant
DX: Z11.59 Encounter for screening for other viral diseases (principal); Z11.4 Encounter for screening for human immunodeficiency virus [HIV]; E55.9 Vitamin D deficiency, unspecified; F41.1 Generalized anxiety disorder; Z79.899 Other long term (current) drug therapy

== ENCOUNTER → 2022-03-14 | Outpatient (REF) | payer OTHER, MEDICAID ==
[2022-03-14 18:20] LABS: BLOOD UREA NITROGEN 15 MG/DL (9-23); CALCIUM LEVEL 9.2 MG/DL (8.5-10.1); CARBON DIOXIDE LEVEL 28 MMOL/L (20-31); CHLORIDE LEVEL 104 MMOL/L (98-107); CREATININE FOR GFR 0.61 MG/DL (0.55-1.30); GLOMERULAR FILTRATION RATE > 60.0 (>60); GLUCOSE, FASTING 63 MG/DL (60-100); POTASSIUM SERUM 4.5 MMOL/L (3.5-5.1); SODIUM LEVEL 137 MMOL/L (136-145)
[2022-03-14 19:21] LABS: HEMOGLOBIN A1c 4.6 % (4.0-6.0)
== END ==
LOC: M LAB REF 16:43
PROVIDERS: ATTEND Physician Assistant
DX: E16.2 Hypoglycemia, unspecified (principal)

== ENCOUNTER 2022-05-01 20:54 | Emergency (ER) | payer OTHER, MEDICAID ==
[~2022-05-01] VITALS: Ht 154.9 cm; Wt 52.1 kg
[2022-05-01 20:54] VITALS: BP 114/76
[2022-05-01] MEDS ORDERED: ABIL1TAB13 PO (21:02)
== END 2022-05-01 23:47 | disposition left against medical advice (07) ==
LOC: M ED 20:54
DX: Z53.21 Procedure and treatment not carried out due to patient leaving prior to being seen by health care provider (principal)

== ENCOUNTER → 2022-05-19 | Outpatient (REF) | payer OTHER, MEDICAID ==
[~2022-05-19] MED LIST changes: +ABIL1TAB13 PO
== END ==
LOC: M LAB REF 17:40
PROVIDERS: ATTEND Physician Assistant
DX: Z12.4 Encounter for screening for malignant neoplasm of cervix (principal); Z11.3 Encounter for screening for infections with a predominantly sexual mode of transmission

== ENCOUNTER → 2022-06-09 | Outpatient (CLI) | payer MEDICAID, OTHER ==
[2022-06-09 15:39] LABS: HEMOGLOBIN A1c 4.7 % (4.0-6.0)
[2022-06-09 15:44] LABS: CHOLESTEROL RISK RATIO 2.38 (<5); HDL CHOLESTEROL 63.8 MG/DL (>40); LDL CHOLESTEROL 72.6 MG/DL (<100); NON-HDL-C 88.2 MG/DL
== END ==
LOC: M LAB 14:24
PROVIDERS: ATTEND Nurse Practitioner Psychiatric/Mental Health
DX: F33.9 Major depressive disorder, recurrent, unspecified (principal)

== ENCOUNTER 2023-09-12 21:44 | Emergency (ER) | payer OTHER ==
[~2023-09-12] VITALS: Ht 157.5 cm; Wt 54.5 kg
[2023-09-12 22:47] LABS: HEMATOCRIT 37.5 % (36.0-47.0); HEMOGLOBIN 12.7 g/dl (12.0-15.5); MEAN CORPUSCULAR HEMOGLOBIN 32.8 pg (27.0-33.0); MEAN CORPUSCULAR HGB CONC 33.9 g/dl (32.0-36.5); MEAN CORPUSCULAR VOLUME 96.9 fl (80.0-96.0); PLATELET COUNT, AUTOMATED 327 10^3/uL (150-450); RED BLOOD COUNT 3.87 10^6/uL (4.00-5.40); WHITE BLOOD COUNT 7.2 10^3/uL (4.0-10.0)
[2023-09-12 23:00] LABS: AMPHETAMINES LEVEL URINE NEGATIVE (NEGATIVE); BARBITURATES URINE NEGATIVE (NEGATIVE); BENZODIAZEPINES URINE NEGATIVE (NEGATIVE); CANNABINOIDS URINE NEGATIVE (NEGATIVE); COCAINE METABOLITE URINE NEGATIVE (NEGATIVE); METHADONE URINE NEGATIVE (NEGATIVE); OPIATES URINE NEGATIVE (NEGATIVE); PHENCYCLIDINE URINE NEGATIVE (NEGATIVE)
[2023-09-12 23:02] LABS: ETHYL ALCOHOL (ETHANOL) 0.232 % (0.000-0.010)
[2023-09-12 23:04] LABS: ALBUMIN 4.5 G/DL (3.2-5.2); ALKALINE PHOSPHATASE 60 U/L (46-116); ALT/SGPT 14 U/L (7.0-40); AST/SGOT 15 U/L (<34); BILIRUBIN,DIRECT 0.1 MG/DL (<0.4); BILIRUBIN,TOTAL 0.4 MG/DL (0.3-1.2); BLOOD UREA NITROGEN 5 MG/DL (9-23); CALCIUM LEVEL 9.3 MG/DL (8.5-10.1); CARBON DIOXIDE LEVEL 25 MMOL/L (20-31); CHLORIDE LEVEL 105 MMOL/L (98-107); CREATININE FOR GFR 0.55 MG/DL (0.55-1.30); GLOMERULAR FILTRATION RATE > 60.0 (>60); GLUCOSE, FASTING 108 MG/DL (60-100); HCG, SERUM QUALITATIVE NEGATIVE (NEGATIVE); POTASSIUM SERUM 4.1 MMOL/L (3.5-5.1); SALICYLATE LEVEL < 3.0 MG/DL (<30); SODIUM LEVEL 140 MMOL/L (136-145); TOTAL PROTEIN 7.5 G/DL (5.7-8.2)
[2023-09-12 23:06] LABS: THYROID STIMULATING HORMONE 0.659 uIU/ML (0.55-4.78)
[2023-09-12] MEDS ORDERED: LURA20TA PO (23:16)
[2023-09-12] MEDS ORDERED: LUNE2TAB28 PO (23:16)
[2023-09-12] MEDS ORDERED: SERT200C PO (23:16)
[2023-09-12] MEDS ORDERED: GABA-284 PO (23:16)
[2023-09-13] MEDS: NICOTINE 21MG/24HR 1 EA TRANSDERMAL TD ONE
[2023-09-13] MEDS: GABAPENTIN 400MG CAP PO SCH
[2023-09-13] MEDS: LURASIDONE 20 MG TAB (LATUDA) PO SCH
[2023-09-13 08:30] VITALS: BP 106/64; TEMP 97.9; O2SAT 100
== END 2023-09-13 09:25 | disposition home or self-care (01) ==
LOC: M ED 21:44
DX: F10.129 Alcohol abuse with intoxication, unspecified (principal); Z79.899 Other long term (current) drug therapy

== ENCOUNTER → 2023-12-11 | Outpatient (REF) | payer OTHER, MEDICAID ==
[~2023-12-11] MED LIST changes: +GABA-1172; -GABA-282; +GABA-284 PO; +LUNE2TAB28 PO; +LURA20TA PO; +SERT200C PO
== END ==
LOC: M LAB REF 16:19
PROVIDERS: ATTEND Physician Assistant
DX: N39.41 Urge incontinence (principal)

== ENCOUNTER → 2024-06-16 | Outpatient (REF) | payer OTHER, MEDICAID ==
[2024-06-16 18:09] LABS: HEPATITIS B SURFACE ANTIGEN NEGATIVE (NEGATIVE)
[2024-06-16 18:20] LABS: HIV 1&2 SCREEN NEGATIVE (NEGATIVE)
[2024-06-16 18:28] LABS: HEPATITIS C VIRUS ABY INDEX 0.05 INDEX (<0.8)
== END ==
LOC: M LAB REF 16:34
PROVIDERS: ATTEND Nurse Practitioner Family
DX: Z20.9 Contact with and (suspected) exposure to unspecified communicable disease (principal)

== ENCOUNTER → 2024-09-12 | Outpatient (REF) | payer OTHER, MEDICAID ==
[2024-09-12 17:49] LABS: BASO # 0.1 10^3/uL (0.0-0.2); BASO % 0.8 % (0.0-1.0); EOS # 0.2 10^3/uL (0.0-0.5); EOS % 2.7 % (0.0-3.0); LYMPH # 1.5 10^3/uL (1.5-5.0); LYMPH % 22.7 % (24.0-44.0); MONO # 0.7 10^3/uL (0.0-0.8); MONO % 11.4 % (2.0-8.0); NEUTROPHILS # 4.0 10^3/uL (1.5-8.5); NEUTROPHILS % 62.2 % (36.0-66.0); PLATELET COUNT, AUTOMATED 308 10^3/uL (150-450)
[2024-09-12 17:57] LABS: ALT/SGPT 17 U/L (7.0-40); AST/SGOT 18 U/L (<34); CALCIUM LEVEL 9.3 MG/DL (8.5-10.1); CARBON DIOXIDE LEVEL 30 MMOL/L (20-31); CHLORIDE LEVEL 102 MMOL/L (98-107); CREATININE FOR GFR 0.68 MG/DL (0.55-1.30); GLOMERULAR FILTRATION RATE > 90.0 (>60); POTASSIUM SERUM 4.6 MMOL/L (3.5-5.1); SODIUM LEVEL 140 MMOL/L (136-145)
[2024-09-12 17:58] LABS: LUTEINIZING HORMONE 24.2 mIU/ML; TOTAL 25(OH) VITAMIN D 24.3 NG/ML (20.0-100.0)
[2024-09-12 17:59] LABS: PROGESTERONE 1.39 NG/ML
[2024-09-12 18:22] LABS: HIV 1&2 SCREEN NEGATIVE (NEGATIVE)
[2024-09-12 18:29] LABS: HEPATITIS C VIRUS ABY INDEX 0.03 INDEX (<0.8)
== END ==
LOC: M LAB REF 17:22
PROVIDERS: ATTEND Nurse Practitioner Family
DX: E55.9 Vitamin D deficiency, unspecified (principal); R23.2 Flushing; Z20.9 Contact with and (suspected) exposure to unspecified communicable disease

== ENCOUNTER → 2024-09-19 | Outpatient (REF) | payer OTHER, MEDICAID ==
[2024-09-19 18:21] LABS: Trichomonas vaginalis (AMP) NOT DETECTED (NEGATIVE)
[2024-09-19 18:45] LABS: GC DNA AMPLIFICATION NEGATIVE (NEGATIVE)
[2024-09-21 15:43] LABS: HPV APTIMA Not Detected (Not Detected)
== END ==
LOC: M LAB REF 16:41
PROVIDERS: ATTEND Nurse Practitioner Family
DX: Z12.4 Encounter for screening for malignant neoplasm of cervix (principal)